=== PATIENT | male | born 1935 | race Asian ===

== ENCOUNTER 2017-11-04 13:57 | Inpatient (IN) | END 2017-11-09 15:40 | disposition home or self-care (01) | DRG 242 ==

== ENCOUNTER 2017-11-13 23:19 | Inpatient (IN) | END 2017-11-23 15:00 | disposition home or self-care (01) | DRG 280 ==

== ENCOUNTER 2017-12-24 07:20 | Emergency (ER) | END 2017-12-24 12:40 | disposition home or self-care (01) ==

== ENCOUNTER 2018-06-24 11:59 | Day surgery (SDC) | payer MEDICARE, OTHER ==
[2018-06-24] VITALS (14 sets, daily range): BP systolic 140–182; BP diastolic 68–83; PULSE 65–96; RESP 16–45; Ht 162.6 cm; Wt 82.0 kg
[~2018-06-24] VITALS: Ht 162.6 cm; Wt 82.0 kg
[~2018-06-24 11:59] MED LIST: AMIO200T4 PO; AMLO5TAB4 PO; ATOR40TA68 PO; BEN50 PO; CALC667C PO; CARV6.2579 PO; CLOP75TA27 PO; FURO-110 PO; HYDR28OI6 TOP; INSU100I33 SC; ISOS30TA67 PO; LORA1TAB PO; NEOM28OI2 TOP; NOVO3I SC; ROSU40TA35 PO; ZOLP5TAB7 PO
[2018-06-24] MEDS ORDERED: FEBU80TA PO (12:31)
[2018-06-24] MEDS ORDERED: CHOL100062 PO (12:31)
[2018-06-24] MEDS ORDERED: TAMS-14 PO (12:32)
[2018-06-24] MEDS ORDERED: NOVO3I SC (12:32)
[2018-06-24] MEDS ORDERED: EVOL140P SQ (12:33)
[2018-06-24] MEDS ORDERED: SOD CHLORIDE 0.9% 500 ML IV SCH (13:00)
[2018-06-24] MEDS ORDERED: hydrALAzine 20 MG INJ IV ONE (13:00)
[2018-06-24] MEDS ORDERED: hydrALAzine 20 MG INJ IV SCH (13:30)
[2018-06-24] MEDS ORDERED: THROMBIN (BOVINE) 5,000 UNIT VIAL TP ONE (14:21)
[2018-06-24] MEDS ORDERED: BUPIVACAINE 0.25% (MPF) 30 ML INJ ONE (14:21)
[2018-06-24] MEDS ORDERED: LIDOCAINE 1% (MPF) 30 ML INJ ONE (14:21)
[2018-06-24] MEDS ORDERED: POLYMYXIN/BACITRACIN 1L IRRIG ONE (14:21)
[2018-06-24] MEDS ORDERED: GELATIN SIZE 100 SPONGE ONE (14:21)
[2018-06-24] MEDS ORDERED: HEPARIN 1000 UNITS/ML 10 ML INJ ONE ×2 (14:22→15:57)
--- NOTE | 2018-06-24 14:35 | PREAC ---
Date/Time of Note Date/Time of Note DATE: 06/24/18 TIME: 14:33 Anesthesia Eval and Record Evaluation Time Pre-Procedure Interview DATE: 06/24/18 TIME: 14:33 Age 82 Sex male NPO: 8 hrs Preoperative diagnosis ESRD on HD Planned procedure Transposition of basilic vein Past Medical History Past Medical History: Includes Cardio: HTN, Dyslipidemia Endo: Diabetes Surgery & Anesthesia Issues No known issue Meds Anticoagulation: No Beta Александр within 24 hr: No Reason Beta Александр not given: Pt. not on B-Александр Reported Medications Evolocumab (Repatha Sureclick) 140 Mg/1 Ml Pen.injctr, 140 MG SQ EVERY OTHER WEEK 06/24/18 Insulin Aspart* (Novolog Insulin Pen*) 100 Unit/Ml Soln, 5 UNIT SC WITH MEALS, EA 06/24/18 Tamsulosin Hcl* (Flomax*) 0.4 Mg Cap.er.24h, 0.4 MG PO DAILY, CAP 06/24/18 Febuxostat* (Uloric*) 80 Mg Tablet, 80 MG PO DAILY, TAB 06/24/18 Cholecalciferol* (Vitamin D3*) 1,000 Unit Tablet, 1000 UNIT PO DAILY, TAB 06/24/18 Isosorbide Mononitrate* (Isosorbide Mononitrate*) 30 Mg Tab.er.24h, 30 MG PO [place] LY, TAB 03/20/18 Furosemide* (Lasix*) 20 Mg Tablet, 20 MG PO DAILY, TAB 03/20/18 Clopidogrel Bisulfate (Clopidogrel) 75 Mg Tablet, 75 MG PO DAILY, #30 TAB 03/20/18 Carvedilol* (Carvedilol*) 6.25 Mg Tablet, 6.25 MG PO BID, #60 TAB 03/20/18 Amiodarone Hcl* (Amiodarone Hcl*) 200 Mg Tablet, 200 MG PO BID, #60 TAB 03/20/18 Amlodipine Besylate* (Norvasc*) 5 Mg Tablet, 5 MG PO DAILY, TAB 03/20/18 Rosuvastatin Calcium* (Crestor*) 40 Mg Tablet, 40 MG PO QHS, #30 TAB 03/20/18 Insulin Glargine,Hum.rec.anlog (Basaglar Kwikpen U-100) 100 Unit/1 Ml Insuln.pen, 20 UNIT SC QHS, EA 03/20/18 Calcium Acetate* (Calcium Acetate*) 667 Mg Capsule, 667 MG PO WITH MEALS, #30 CAP 03/20/18 Discontinued Reported Medications Insulin Aspart* (Novolog Insulin Pen*) 100 Unit/Ml Soln, 10 UNIT SC WITH MEALS, EA 03/20/18 Atorvastatin* (Atorvastatin*) 40 Mg Tablet, 40 MG PO QHS, #30 TAB 03/20/18 Zolpidem Tartrate* (Zolpidem Tartrate*) 5 Mg Tablet, 5 MG PO QHS PRN for INSOMNIA, #30 TAB 03/20/18 Lorazepam* (Lorazepam*) 1 Mg Tablet, 1 MG PO BID PRN for ANXIETY, #30 TAB 03/20/18 Discontinued Scripts Diphenhydramine Hcl* (Benadryl*) 50 Mg Cap, 50 MG PO Q6 PRN for ITCHING, #30 CAP Prov:PK LINDO 03/27/18 Neomycin Zelaya/Bacitrac Zn/Poly (Triple Antibiotic Ointment) 28 Gm Oint...g., 1 APPLIC TOP TID for 14 Days Prov:PK LINDO 03/27/18 Hydrocortisone Acetate (ANTI-ITCH) 28 Gm Oint...g., 1 APPLIC TOP TID for 14 Days Prov:PK LINDO 03/27/18 Current Medications Sodium Chloride 500 ml @ 0 mls/hr Q0M IV ; Start 06/24/18 at 13:00 Meds reviewed: Yes Allergies Coded Allergies: No Known Allergy (Unverified , 06/24/18) Allergies Reviewed: Yes Labs/Studies Labs Reviewed: Reviewed by anesthesiologist Result Diagram: 06/24/18 1258 06/24/18 1258 Laboratory Tests 06/24/18 12:58 test: N/A Studies: ECG Pre-procedure Exam Last vitals Vital Signs Date Temp Pulse Resp B/P (MAP) Pulse Ox O2 O2 Flow FiO2 Time Delivery Rate 06/24/18 67 153/80 13:48 (104) 06/24/18 97.7 16 99 Room Air 13:31 Airway: Adequate mouth opening, Adequate thyromental dist Mallampati: Mallampati II Teeth: Normal Lung: Normal Heart: Normal ASA Physical Status ASA physical status: 4 Emergency: None Planned Anesthetic General/MAC: LMA Planned Pain Management Parenteral pain med, Local by surgeon Pre-operative Attestations Prior to commencing anesthesia and surgery, the patient was re-evaluated, there was verification of: *The patient's identity *The results of appropriate recent lab work and preoperative vital signs *The above evaluation not changing prior to induction *Anesthetic plan, risk benefits, alternative and complications discussed with patient/family; questions answered; patient/family understands, accepts and wishes to proceed. SHANNAN WHITE MD June 24, 2018 14:35
[2018-06-24] MEDS ORDERED: MIDAZOLAM 1 MG/ML 2 ML INJ ONE (14:50)
[2018-06-24] MEDS ORDERED: FENTAnyl 50 MCG/ML VIAL ONE ×2 (14:50→15:34)
[2018-06-24] MEDS ORDERED: hydrALAzine 20 MG INJ ONE (16:36)
[2018-06-24] MEDS ORDERED: ETOMIDATE 20 MG INJ ONE (16:39)
[2018-06-24] MEDS ORDERED: CEFAZOLIN 1 GM INJ ONE (16:39)
[2018-06-24] MEDS ORDERED: LIDOCAINE 2% (SDV) 5 ML INJ ONE (16:39)
[2018-06-24] MEDS ORDERED: PROPOFOL 20 ML ONE (16:39)
[2018-06-24] MEDS ORDERED: ONDANSETRON 4 MG INJ ONE (16:40)
[2018-06-24] MEDS ORDERED: FENTAnyl 50 MCG/ML VIAL IV PRN (17:00)
[2018-06-24] MEDS ORDERED: ONDANSETRON 4 MG INJ IV PRN (17:00)
[2018-06-24] MEDS ORDERED: HYDROmorphONE 1 MG/5 ML IV SYRINGE IV PRN (17:00)
[2018-06-24] MEDS ORDERED: DIPHENHYDRAMINE 50 MG INJ IV PRN (17:00)
--- NOTE | 2018-06-24 17:01 | PAC ---
Date/Time of Note Date/Time of Note DATE: 06/24/18 TIME: 17:00 Post-Anesthesia Notes Post-Anesthesia Note Last documented vital signs Vital Signs Date Temp Pulse Resp B/P (MAP) Pulse Ox O2 O2 Flow FiO2 Time Delivery Rate 06/24/18 67 153/80 13:48 (104) 06/24/18 97.7 16 99 Room Air 13:31 Activity: WNL Respiratory function: WNL Cardiovascular function: WNL Mental status: Baseline Pain reasonably controlled: Yes Hydration appropriate: Yes Nausea/Vomiting absent: Yes Comments BP:145/76, P:74, Spo2:100%, T:98,8 SHANNAN WHITE MD June 24, 2018 17:01
[2018-06-24] MEDS: HYDROmorphONE 1 MG/5 ML IV SYRINGE IV PRN ×2 (17:10→17:15)
--- NOTE | 2018-06-24 17:15 | OPR ---
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 Anesthesia Type: general Estimated Blood Loss: minimal Transfusion none Specimen None Grafts/Implants none Complications none Disposition: PACU Procedure Description Patient was placed in supine position prepped and draped in usual sterile fashion with the right arm extended Time out was called antibiotics was given made a 4 cm incision in the right distal arm medially over the pulsation of the previously made fistula incision was taken down to subcutaneous tissue brachial artery and the basilic vein were identified basilic vein was dissected he was followed up through the midportion of the arm but it appeared to be sclerotic and fibrotic and not a good vein for a fistula placement a second second incision was made in the axillary area about 6 cm long incision was taken down to subcutaneous tissue the basilic vein appeared to be adequate in the axilla which was then identified the cervix were passed around it a 4 to 7 mm [place] graft was placed in the subcutaneous lateral pocket patient was given 5000 units of IV heparin vascular clamps were applied the arterial anastomosis was done to a 4 mm longitudinal arteriotomy end-to-side fashion 6-0 Prolene continuous suture technique the distal venous anastomosis was done in an end-to-end fashion 6) continue suture technique asked after the basilic vein was ligated distally both wounds were then irrigated and closed in 2 layers of 3-0 Vicryl suture for subcu and 3-0 Vicryl suture for running subcuticular skin closure patient had a strong thrill and bruit over the newly constructed graft and a Doppler signal in the radial artery no signs of ischemia CHANA PICHARDO MD June 24, 2018 17:15
[2018-06-24] MEDS ORDERED: HYDROmorphONE 1 MG/ML SYG IV PRN (18:00)
--- NOTE | 2018-06-25 16:00 | RADRPT ---
Vent Rate: 66 bpm RR Interval: 904 msec UT Interval: 173 msec QRS Duration: 90 msec QT Interval: 463 msec QTC Interval: 487 msec P-R-T [place]: 20 - 1 - 53 degrees Sinus rhythm...normal P axis, V-rate 50- 99 Electronically Signed By: Philipp Crisostomo
== END 2018-06-24 18:51 | disposition home or self-care (01) ==
LOC: SDS 11:59
PROVIDERS: ATTEND Thoracic Surgery (Cardiothoracic Vascular Surgery)
DX: I12.0 Hypertensive chronic kidney disease with stage 5 chronic kidney disease or end stage renal disease (principal); N18.6 End stage renal disease; E78.5 Hyperlipidemia, unspecified; Z79.4 Long term (current) use of insulin
CPT/HCPCS: 36821; 71045; 80048; 82962; 85025; 85610; 85730; 93005; C1725; C1768; J0360; J0690; J1170; J1644; J2250; J2405; J3010

== ENCOUNTER 2018-10-25 08:12 | Day surgery (SDC) | payer MEDICARE, OTHER ==
[~2018-10-25] VITALS: Ht 167.6 cm; Wt 77.0 kg
[~2018-10-25 08:12] MED LIST changes: -ATOR40TA68 PO; -BEN50 PO; +CHOL100062 PO; +EVOL140P SQ; +FEBU80TA PO; -HYDR28OI6 TOP; -LORA1TAB PO; -NEOM28OI2 TOP; +TAMS-14 PO; -ZOLP5TAB7 PO
[2018-10-25 09:06] VITALS: Ht 167.6 cm; Wt 77.0 kg
[2018-10-25 09:21] VITALS: BP 156/69; PULSE 62; RESP 16
[2018-10-25] MEDS ORDERED: PROPOFOL 40 ML ONE (09:28)
[2018-10-25 10:56] VITALS: BP 127/61; RESP 20
== END 2018-10-25 11:54 | disposition home or self-care (01) ==
LOC: GIL 08:12
PROVIDERS: ATTEND Internal Medicine Gastroenterology
DX: Z86.010 Personal history of colon polyps (principal); D12.3 Benign neoplasm of transverse colon; K64.4 Residual hemorrhoidal skin tags; K29.70 Gastritis, unspecified, without bleeding; I12.0 Hypertensive chronic kidney disease with stage 5 chronic kidney disease or end stage renal disease; N18.6 End stage renal disease; Z99.2 Dependence on renal dialysis; E11.9 Type 2 diabetes mellitus without complications; I25.10 Atherosclerotic heart disease of native coronary artery without angina pectoris; I25.2 Old myocardial infarction; Z79.4 Long term (current) use of insulin
CPT/HCPCS: 80048; 88305; 88312